=== PATIENT | male | born 1925 | race Asian ===

== ENCOUNTER 2016-09-22 13:14 | Inpatient (IN) | payer MEDICARE, BC ==
[~2016-09-22] VITALS: Ht 177.8 cm; Wt 70.0 kg
[2016-09-22] VITALS (8 sets, daily range): BP systolic 99–127; BP diastolic 49–62; PULSE 70–87; RESP 14–16; Ht 177.8 cm; Wt 70.0 kg
[2016-09-22] MEDS ORDERED: ASPIRIN 300 MG SUPP PR STA (13:17)
[2016-09-22] MEDS ORDERED: HEPARIN 1000 UNITS/ML 10 ML INJ IV STA (13:17)
[2016-09-22] MEDS ORDERED: ASPIRIN 81 MG TAB ONE (13:24)
[2016-09-22 13:28] LABS: BASOPHIL # 0.1 10^3/ul (0.0-0.1); BASOPHILS % 0.5 % (0.0-2.0); EOSINOPHILS # 0.3 10^3/ul (0.0-0.5); EOSINOPHILS % 2.9 % (0.0-7.0); HEMATOCRIT 46.1 % (42.0-52.0); HEMOGLOBIN 15.5 g/dl (14.0-18.0); LYMPHOCYTES # 4.2 10^3/ul (0.8-2.9); LYMPHOCYTES % 43.4 % (15.0-51.0); MEAN CORPUSCULAR HEMOGLOBIN 33.3 pg (29.0-33.0); MEAN CORPUSCULAR HGB CONC 33.7 g/dl (32.0-37.0); MEAN CORPUSCULAR VOLUME 98.9 fl (82.0-101.0); MEAN PLATELET VOLUME 9.8 fl (7.4-10.4); MONOCYTE # 0.8 10^3/ul (0.3-0.9); MONOCYTES % 8.5 % (0.0-11.0); NEUTROPHIL # 4.3 10^3/ul (1.6-7.5); NEUTROPHILS % 44.7 % (39.0-77.0); PLATELET COUNT 232 10^3/UL (140-440); RED BLOOD COUNT 4.65 10^6/ul (4.70-6.10); UNCORRECTED WBC 9.6 10^3/ul (4.8-10.8); WHITE BLOOD COUNT 9.6 10^3/ul (4.8-10.8)
[2016-09-22] MEDS ORDERED: ASPIRIN 81 MG TAB PO ONE (13:30)
--- NOTE | 2016-09-22 13:31 | ERA ---
ER Documentation Chief Complaint Date/Time DATE: 09/22/16 TIME: 13:24 Chief Complaint bibr found in kitchen by passed out, ekg showed stemi, pt a/o 4 HPI This 81-year-old male presents to the emergency room after he had a syncopal episode and was found by his passed out of the kitchen. According to family he had stents placed about a week ago at [facility]. His EKG showed inferior wall STEMI in the field. Patient was altered. Family is not present yet and no further history is obtainable. ROS Unobtainable. Patient not answering questions. Altered Allergies Allergies: Coded Allergies: No Known Allergy (Verified Allergy, Unknown, 12/27/06) PMhx/Soc History of Surgery: Yes (3 stents) Anesthesia Reaction: No Hx Neurological Disorder: No Hx Respiratory Disorders: No Hx Cardiac Disorders: Yes (3 stents) Hx Alcohol Use: No Hx Substance Use: No Hx Tobacco Use: No Smoking Status: Former smoker Physical Exam Vitals Vital Signs Date Time Temp Pulse Resp B/P Pulse Ox O2 Delivery O2 Flow Rate FiO2 09/22/16 13:19 97.8 91 18 164/91 99 09/22/16 13:19 94 18 164/91 100 Nasal Cannula 6.0 Physical Exam Const: [] No distress Head: Atraumatic Eyes: Normal Conjunctiva, PERRLA, EOMI ENT: Normal External Ears, Nose and Mouth. Neck: Full range of motion..~ No meningismus. Resp: Clear to auscultation bilaterally Cardio: Regular rate and rhythm, no murmurs Abd: Soft, non tender, non distended. Normal bowel sounds Skin: No petechiae or rashes Back: No midline or flank tenderness Ext: No cyanosis, or edema, midsternotomy scar along chest wall. Neur: Awake and alert, looking around room, not responding to questions, moves all 4 extremities, full neuro neurological exam is not possible Result Diagram: 09/22/16 1320 09/22/16 1320 Results 24 hrs Laboratory Tests Test 09/22/16 13:20 Activated Partial Thromboplast Time 29.8Sec Anion Gap 29 Basophils # 0.110^3/ul Basophils % 0.5% Blood Urea Nitrogen 25mg/dl Calcium Level 9.0mg/dl Carbon Dioxide Level 15mmol/L Chloride Level 97mmol/L Creatinine 1.21mg/dl Eosinophils # 0.310^3/ul Eosinophils % 2.9% Glucose Level 167mg/dl Hematocrit 46.1% Hemoglobin 15.5g/dl INR International Normalized Ratio 1.02 Lymphocytes # 4.210^3/ul Lymphocytes % 43.4% Mean Corpuscular Hemoglobin 33.3pg Mean Corpuscular Hemoglobin Concent 33.7g/dl Mean Corpuscular Volume 98.9fl Mean Platelet Volume 9.8fl Monocytes # 0.810^3/ul Monocytes % 8.5% Neutrophils # 4.310^3/ul Neutrophils % 44.7% Nucleated Red Blood Cells # 0.010^3/ul Nucleated Red Blood Cells % 0.0/100WBC Platelet Count 74125^3/UL Potassium Level 3.9mmol/L Prothrombin Time 13.4Sec Prothrombin Time Ratio 1.0 Red Blood Count 4.6510^6/ul Red Cell Distribution Width 14.0% Sodium Level 137mmol/L Troponin I 0.019ng/ml White Blood Count 9.610^3/ul Current Medications Medications (Trade) Dose Ordered Sig/Alvaro Route PRN Reason Start Time Stop Time Status Last Admin Dose Admin Aspirin (Aspirin) 300 mg ONCE STAT CA 09/22/16 13:17 09/22/16 13:19 DC Heparin Sodium (Porcine) (Heparin (1000 Units/ml)) 5,000 unit ONCE STAT IV 09/22/16 13:17 09/22/16 13:19 DC 09/22/16 13:28 Aspirin (Aspirin) 324 mg ONCE ONCE PO 09/22/16 13:30 09/22/16 13:31 DC 09/22/16 13:28 Aspirin (Aspirin) 81 mg STK-MED ONCE .ROUTE 09/22/16 13:24 09/22/16 13:25 DC Lidocaine (Xylocaine 1% (Mdv) 20 ml) 20 ml STK-MED ONCE .ROUTE 09/22/16 13:54 09/22/16 13:55 DC Iodixanol (Visipaque Locm) 50 ml STK-MED ONCE .ROUTE 09/22/16 13:54 09/22/16 13:55 DC Iodixanol (Visipaque Locm) 100 ml STK-MED ONCE .ROUTE 09/22/16 13:54 09/22/16 13:55 DC Verapamil HCl (Verapamil) 5 mg STK-MED ONCE .ROUTE 09/22/16 13:54 09/22/16 13:55 DC Nitroglycerin 1000 mcg 1,000 mcg STK-MED ONCE .ROUTE 09/22/16 13:54 09/22/16 13:55 DC Sodium Chloride 500 ml @ ud STK-MED ONCE .ROUTE 09/22/16 14:01 09/22/16 14:02 DC Bivalirudin 50 ml @ ud STK-MED ONCE IVPB 09/22/16 14:01 09/22/16 14:02 DC Dopamine HCl/ Dextrose 250 ml @ ud STK-MED ONCE .ROUTE 09/22/16 14:11 09/22/16 14:12 DC Norepinephrine (Levophed) 0 ml @ ud STK-MED ONCE .ROUTE 09/22/16 14:17 09/22/16 14:18 DC Ticagrelor (Brilinta) 90 mg STK-MED ONCE .ROUTE 09/22/16 14:29 09/22/16 14:30 DC Miscellaneous Information (* Miscellaneous Pharmacy Order) Hold all Metformin ... ONCE ONCE XX 09/22/16 15:30 09/22/16 15:32 DC Aspirin (Halfprin) 81 mg DAILY PO 09/23/16 09:00 Ticagrelor (Brilinta) 90 mg BID PO 09/22/16 21:00 Atorvastatin Calcium (Lipitor) 40 mg DAILY@21 PO 09/22/16 21:00 Acetaminophen (Tylenol Tab) 650 mg Q4H PRN PO NON-CARDIAC PAIN LEVEL 1-3 09/22/16 15:30 Oxycodone/ Acetaminophen (Percocet (5/ 325)) 1 tab Q4H PRN PO REPORTED NON-CARDIAC PAIN 4-7 09/22/16 15:30 Oxycodone/ Acetaminophen (Percocet (5/ 325)) 2 tab Q4H PRN PO REPORTED NON-CARDIAC PAIN 4-7 09/22/16 15:30 Morphine Sulfate (morphine) 1 mg Q1H PRN IV PAIN NOT RELIEVED BY OTHERS 09/22/16 15:30 Docusate Sodium (Colace) 100 mg BID PO 09/22/16 21:00 Famotidine (Pepcid) 20 mg Q12 PO 09/22/16 21:00 Carvedilol (Coreg) 3.125 mg BID PO 09/22/16 21:00 Lisinopril 2.5 mg 2.5 mg DAILY PO 09/23/16 09:00 Sodium Chloride (NS) 1,000 ml @ 75 mls/hr [id number] IV 09/22/16 15:24 09/23/16 04:43 Procedures/MDM Because of the patient's significant history of recent stent placement, risk factors, field EKG showing STEMI with reciprocal depressions code STEMI was activated at 1307. Spoke with repair welder, Dr. Veliz, at 1310. Patient arrived at 1314. Patient was given 5000 of heparin per cardiology recommendation. Also gave him 3 and 24 mg p.o. aspirin. His mental status improved several minutes after he got here he was answering questions but did not remember what might of happened, did not remember how recently he had been at [facility] for his stents he did not remember any medications that he takes although he knows there are many. .was present in the emergency room at 1328 and speaking to patient. He took the patient probably to the [facility]. Patient's laboratories returned and troponin was 0.019. I have ordered a CAT scan because of the syncopal episode and results are still pending. I am awaiting those results. I spoke with Dr. Bird Mahmood will be admitting the patient to the intensive care unit. Continue discussed the case with interventional cardiology t. Apparently the patient had a 99% RCA lesion EKG interpretation, proposal editor EKG from the field: Inferior wall STEMI with ST elevations in leads III and aVF as well as lead to with reciprocal depressions in the anterolateral leads., Right bundle branch block, right axis deviation. Suspicious for STEMI EKG interpretation #2, and hospital. Patient still has ST elevations in leads III and aVF. Normal sinus rhythm, rate of 99, bifascicular block, right axis deviation, suspicious for STEMI brick stacker interpretation: Normal sinus rhythm alternating with mild sinus tachycardia without other arrhythmias Chest x-ray interpretation: I see mild cardiomegaly, I see no other acute process. No pulmonary edema, no infiltrates, no pneumothorax, no acute fractures. There is poor inspiration present Critical care time 33 minutes: This includes management ST elevation myocardial infarction in patient with a syncopal episode, prehospital EKG, prehospital discussion with repair welder, ministration of heparin, multiple visits patient's bedside to reassess status, discussion with repair welder, discussion with admitting doctor after patient had a going to hospital laboratory technician, interpretation of laboratories, continue discussion with repair welder after the patient had been in hospital laboratory technician, this is not including billable procedures performed. Departure Diagnosis: Primary Impression: ST elevation myocardial infarction (STEMI) Additional Impressions: Syncope Altered mental status Right coronary artery occlusion Condition: Critical ANIYAH RAMÍREZ DO Sep 22, 2016 13:31
[2016-09-22 13:37] LABS: POTASSIUM 3.9 mmol/L (3.5-5.1)
[2016-09-22 13:38] LABS: INR 1.02; PROTIME 13.4 Sec (12.2-14.2)
[2016-09-22 13:39] LABS: PARTIAL THROMBOPLASTIN TIME 29.8 Sec (25.0-35.0)
[2016-09-22 13:40] LABS: CREATININE 1.21 mg/dl (0.61-1.24)
--- NOTE | 2016-09-22 13:40 | RADRPT ---
PROCEDURE: XR Chest AP portable CLINICAL INDICATION: Stemi TECHNIQUE: An AP portable radiograph of the chest was submitted. COMPARISON: 04/29/2007 FINDINGS: Support Hardware: None Cardiovascular: Metallic sternal wiring is again evident. The heart appears mildly enlarged and the aorta appears atherosclerotic with a pulmonary vasculature upper normal. Lung Pendleton: Diffuse interstitial prominence is seen to the lung pendleton exaggerated by suboptimal in spiration and underpenetrated technique. No alveolar infiltrate is evident. Pleural Spaces: No pneumothorax or pleural effusion is identified. Osseous Structures: The osseous elements appear rarefied. Soft Tissues: The soft tissues appear unremarkable. IMPRESSION: 1. Previous midline sternotomy. 2. Persistent mild cardiomegaly with atherosclerotic changes to the aorta and with the pulmonary va sculature upper normal. 3. Interstitial prominence seen diffusely through the lung pendleton exaggerated by poor inspiratory e ffort and under penetrated technique with no alveolar infiltrate or effusion identified. Physician Jin Date Time Electronically viewed and signed by Physician Jin on 09/22/2016 13:40 RH/
[2016-09-22 13:53] LABS: TROPONIN-I 0.019 ng/ml (0.00-0.12)
[2016-09-22] MEDS ORDERED: IODIXANOL LOCM 50 ML BTL ONE (13:54)
[2016-09-22] MEDS ORDERED: NITROGLYCERIN (IC) 100 MCG/ML INJ ONE (13:54)
[2016-09-22] MEDS ORDERED: IODIXANOL LOCM 100 ML BTL ONE (13:54)
[2016-09-22] MEDS ORDERED: VERAPAMIL 5 MG INJ ONE (13:54)
[2016-09-22] MEDS ORDERED: LIDOCAINE 1% (MDV) 20 ML INJ ONE (13:54)
[2016-09-22] MEDS ORDERED: SOD CHLORIDE 0.9% 500 ML ONE (14:01)
[2016-09-22] MEDS ORDERED: BIVALIRUDIN 250MG /NS 50 ML 50 ML IVPB ONE (14:01)
[2016-09-22 14:02] LABS: CONDITION 1
[2016-09-22] MEDS ORDERED: DOPamine-D5W 1.6 MG/ML 250 ML ONE (14:11)
[2016-09-22] MEDS ORDERED: NORepinephrine 8MG/250 ML (PMX 0 ML ONE (14:17)
[2016-09-22] MEDS ORDERED: TICAGRELOR 90 MG TABLET ONE (14:29)
[2016-09-22] MEDS ORDERED: OXYCODONE/ACETAMINOPHEN (5/325) TAB PO PRN ×2 (15:30)
[2016-09-22] MEDS ORDERED: ACETAMINOPHEN 325 MG TAB PO PRN (15:30)
[2016-09-22] MEDS ORDERED: morphine 2 MG INJ IV PRN (15:30)
[2016-09-22] MEDS: SOD CHLORIDE 0.9% 1,000 ML IV SCH ×2 (16:00→23:34)
--- NOTE | 2016-09-22 18:20 | CONS ---
DATE OF ADMISSION: 09/22/2016 DATE OF CONSULTATION: 09/22/2016 TYPE OF CONSULTATION: Emergent interventional cardiology. REASON FOR CONSULTATION: ST elevation myocardial infarction. CHIEF COMPLAINT: Syncope. HISTORY OF PRESENT ILLNESS: Thank you for this referral. History was obtained from the patient who is an extremity poor historian, from discussion with multiple family members including his , hi s daughter and his granddaughter who stated that she is the family's secretary of police. I was able to obtain a brief history from [facility] where the patient was recently admitted for PCI as well. This is an 89-year-old pleasant gentleman with history of coronary artery disease, status post coron kathleen bypass graft, history of bypass, multiple PCIs, who had a recent angioplasty of his saphenous ve in graft to left circumflex artery done. At the best I could obtain from the old record that was gi iggy to me verbally, the patient on 09/06/2016 underwent elective cardiac catheterization. At that t aminata, he underwent PCI of the left circumflex artery graft with 3 stents. At that time, he appeared to have a LUJAN to LAD patent and the right coronary artery has reportedly 50% stenosis. He reported ly fell in the kitchen and was passed out. EKG showed inferior ST elevation myocardial infarction. The patient did not have any chest pain; however, but because of his EKG abnormality was brought in to emergency cardiac catheterization. He was found to have 95% right coronary artery stenosis. Th is was successfully stented. There was evidence of clot there as well. Currently, the patient is i n the ICU with no chest pain or pressure. PAST MEDICAL HISTORY: History of coronary artery disease, status post multivessel bypass surgery ab out 11 years ago, history of hypertension, dyslipidemia, history of PCI of his saphenous vein graft to his circumflex artery on 09/05/[address] Joseph at [facility], history of chronic kidney dise ase. SURGICAL HISTORY: As above-mentioned, apparently has had a hematoma on his right groin after his pr evious PCI per patient's family's report. SOCIAL HISTORY: The patient is a former smoker. Does not smoke or drink anymore. FAMILY HISTORY: No reported early coronary artery disease. ALLERGIES: NO KNOWN DRUG ALLERGIES MEDICATIONS: As per medical reconciliation, which was personally reviewed, according to the family, include 1. Aspirin. 2. Plavix. 3. Lisinopril. 4. Carvedilol. 5. Lipitor. REVIEW OF SYSTEMS: As above-mentioned, patient had worsening memory apparently recently. PHYSICAL EXAMINATION: VITAL SIGNS: Temperature 98.4, heart rate of 81, blood pressure of 108/59, respiratory rate of 14, saturating 99%. HEENT: Normocephalic, atraumatic. Pupils are equal. CARDIOVASCULAR: Regular rate and rhythm, systolic murmur. PULMONARY: Anteriorly with no wheezes heard. No rhonchi. GASTROINTESTINAL: Soft, nontender. EXTREMITIES: With trivial lower extremity edema. VASCULAR: Right femoral with hematoma as noted prior to the procedure as well. Small ecchymosis no nithya. NEUROLOGIC: Awake and alert, oriented to person. He keeps forgetting where he is, but he knows in the hospital though. PSYCHIATRIC: Appears to be calm and very pleasant. LABORATORY DATA: WBC of 9.26, hemoglobin 15.5, platelets of 232. Sodium 137, potassium 3.9, BUN of 25, creatinine 1.21, glucose 167. Troponin 0.019. Review of the old chart showed as of 04/30, his LDL was 164. Total cholesterol 253, HDL 60. EKGs were reviewed. Old EKGs were done were reviewed from 09/05/2016 showed normal sinus rhythm wit h right bundle branch block. EKG from today shows sinus tachycardia, right bundle branch block with marked ST elevation in inferi leander, reciprocal changes in the lateral lead, consistent with an acute inferior ST elevation myocard ial infarction. IMAGING: The chest x-ray shows a previous midline sternotomy, mild cardiomegaly, atherosclerosis ch anges of the aorta, pulmonary vascular congestion appear normal. Interstitial prominence diffusely throughout the lungs, history of poor respiratory effort. ASSESSMENT AND PLAN: 1. Acute inferior ST elevation myocardial infarction, status post successful percutaneous coronary intervention of right coronary artery. 2. History of extensive coronary artery disease, history of coronary bypass graft. 3. History of previous percutaneous coronary intervention. 4. Hypertension. 5. Abnormal EKG secondary to above. 6. Syncope, most likely related to above. 7. Severe dyslipidemia. 8. Hypertension. RECOMMENDATIONS: 1. The patient will be placed on aspirin, lisinopril, Brilinta, Lipitor, carvedilol. 2. He will be observed closely in ICU overnight. 3. Echocardiogram will be checked. We will monitor him very closely. Thank you for this referral. Dictated By: JOHANNA GIBSON MD AV/NTS Conf#: [id number] DID#: [id number] CC: ANIYAH RAMÍREZ DO; ALLAN HAYNES MD;*EndCC*
--- NOTE | 2016-09-22 18:40 | SP ---
DATE OF PROCEDURE: 09/22/2016 PROCEDURE: 1. Emergent left heart catheterization, selective right and left coronary angiography, and saphenou s vein angiography. 2. Successful thrombectomy/PTCA/stenting of the distal right coronary artery from 99% stenosis with evidence of intraluminal thrombus, no significant residual stenosis, using a 2.5 x 24 mm Promus ___ __ stent. SURGEON: Johanna Veliz MD INDICATIONS: This is an 89-year-old gentleman who presented with inferior ST elevation myocardial i nfarction. With the brief note that I could obtain from [facility] Jacob, it appeared at that time he had an angiography done, which showed LUJAN to LAD was patent. Circumflex artery was severely, diffusel y diseased, and the graft to the circumflex artery was stented using 3 stents. Right coronary arter y apparently had 50% stenosis only reportedly. FINDINGS: 1. Left main coronary is a large vessel and normal. 2. Left anterior descending ostially 100% occluded. As previously reported, LUJAN to LAD was patent , so it was not looked at. 3. Left circumflex artery had multiple areas of subtotal lesions. Saphenous vein graft to obtuse m arginal appeared to be widely patent. OM marginal itself currently has severe diffuse disease. 4. Right coronary artery is a large dominant vessel. Proximally, it has about 50% stenosis. Dista lly, it has 99% stenosis with in-stent luminal thrombus. After successful PTCA stent and thrombecto my of this lesion, there was no significant stenosis left. Posterior descending artery has a TAPE DECK INSTALLER. The wire was able to cross; however, . Posterolateral artery has one of the branches also ano ther TAPE DECK INSTALLER. 5. LV systolic pressure is 104. 8. DESCRIPTION OF PROCEDURE: Written informed consent was discussed with the patient and in detai l. This included infection, vascular complication, bleeding complication, FL, stroke, arrhythmia, d eath, renal failure, etc., discussed with the patient and the family. Patient memory impairme nt. Discussed it with the , and consent was obtained. The patient was admitted to the geoscience laboratory technician and sterile fashion. Right groin was anesthetized wi th 1% lidocaine was injected. A 6-Nepali sheath in the femoral artery. A JL4 catheter was advanced and engaged in the left main coronary artery. Angiogram was obtained. JR4 guiding catheter was pa ssed into the saphenous vein graft. Angiogram was obtained. It appeared that the stents were paten t. right coronary artery, and angiogram was obtained. We decided to proceed with PCI of the right coronary artery. BMW wire used across the lesion in the posterolateral artery. A 2.5 x 12 ba lloon was used to predilate the vessel. Angiogram was obtained. Pronto was used, and a thrombectom y was obtained. Intracoronary was given, and angiogram was obtained. Patient transiently bec ankit hypertensive after this. was started. Atropine was given. Then, a river pilot wire was used a nd placed with very great difficulty, advanced into the posterior descending artery. It was a very small vessel. Tried to advance different balloons, including a 1.25 balloon, which could not cross across it. total occlusion of the vessel. Then, the 2.5 balloon was used again and predilate d the distal RCA. Finally, a 2.5 x 24 mm Promus balloon was placed across the distal RCA and deploy ed at 16 atmospheres. Angiogram was obtained. Finally, a 3 x 8 mm balloon was used and place d across the lesion within the stent and postdilated up to 18 atmospheres. Final angiogram was obta ined with DIA 0 flow, no evidence of dissection, no significant residual stenosis. Catheter and Gl idewire were removed. Pigtail was advanced and engaged in the left main, hemodynamics recorded. __ ___ aortic pressure was measured. Right femoral angiogram was performed. Perclose was successfully deployed. Patient tolerated the procedure without complication. The patient was transferred to recovery room in stable condition. IMMEDIATE COMPLICATIONS: None. TOTAL CONTRAST USED: 110 mL of Visipaque. CONCLUSION: Successful PTCA stent thrombectomy of the right coronary artery from 99% stenosis with no significant residual stenosis. Dictated By: JOHANNA VELIZ MD AV/BIN Conf#: [id number] DID#: [id number] CC: ZULMA KOHLER MD;*EndCC*
[2016-09-22 20:33] LABS: CK-MB 56.8 ng/ml (0.0-2.4)
[2016-09-22] MEDS: ATORVASTATIN 40 MG TAB PO SCH (20:36)
[2016-09-22] MEDS: DOCUSATE SODIUM 100 MG CAP PO SCH (20:36)
[2016-09-22 20:37] LABS: TROPONIN-I 13.8 ng/ml (0.00-0.12)
[2016-09-22] MEDS: FAMOTIDINE 20 MG TAB PO SCH (20:37)
[2016-09-22] MEDS: TICAGRELOR 90 MG TABLET PO SCH (20:39)
[2016-09-22] MEDS ORDERED: ATORVASTATIN 40 MG TAB PO SCH (21:00)
[2016-09-23] VITALS (21 sets, daily range): BP systolic 98–156; BP diastolic 48–72; PULSE 56–69; RESP 16–20
[2016-09-23 02:11] LABS: CK-MB 70.1 ng/ml (0.0-2.4); TROPONIN-I 19.7 ng/ml (0.00-0.12)
[2016-09-23 05:42] LABS: ALBUMIN 3.4 g/dl (3.3-4.9)
[2016-09-23 05:43] LABS: POTASSIUM 4.4 mmol/L (3.5-5.1)
[2016-09-23 05:45] LABS: ALBUMIN/GLOBULIN RATIO 1.21; BILIRUBIN,INDIRECT 1.2 mg/dl (0-1.1); BILIRUBIN,TOTAL 1.2 mg/dl (0.2-1.3); CREATININE 0.88 mg/dl (0.61-1.24); TOTAL PROTEIN 6.2 g/dl (6.1-8.1)
[2016-09-23 05:46] LABS: CALCIUM 8.4 mg/dl (8.4-10.2)
[2016-09-23 06:04] LABS: TROPONIN-I 18.3 ng/ml (0.00-0.12)
[2016-09-23 06:10] LABS: THYROID STIMULATING HORMONE 2.34 MIU/L (0.465-4.680)
[2016-09-23 06:40] LABS: BASOPHILS % 0.2 % (0.0-2.0); EOSINOPHILS % 0.1 % (0.0-7.0); HEMATOCRIT 37.8 % (42.0-52.0); HEMOGLOBIN 12.9 g/dl (14.0-18.0); LYMPHOCYTES # 0.8 10^3/ul (0.8-2.9); LYMPHOCYTES % 9.3 % (15.0-51.0); MEAN CORPUSCULAR HEMOGLOBIN 33.6 pg (29.0-33.0); MEAN CORPUSCULAR HGB CONC 34.2 g/dl (32.0-37.0); MEAN CORPUSCULAR VOLUME 98.2 fl (82.0-101.0); MEAN PLATELET VOLUME 9.3 fl (7.4-10.4); MONOCYTE # 0.8 10^3/ul (0.3-0.9); MONOCYTES % 9.8 % (0.0-11.0); NEUTROPHIL # 6.9 10^3/ul (1.6-7.5); NEUTROPHILS % 80.6 % (39.0-77.0); PLATELET COUNT 168 10^3/UL (140-440); RED BLOOD COUNT 3.85 10^6/ul (4.70-6.10); RED CELL DISTRIBUTION WIDTH 14.2 % (11.5-14.5); UNCORRECTED WBC 8.6 10^3/ul (4.8-10.8); WHITE BLOOD COUNT 8.6 10^3/ul (4.8-10.8)
[2016-09-23 06:44] LABS: CONDITION 1
--- NOTE | 2016-09-23 07:08 | PN ---
DATE: 09/22/2016 SUBJECTIVE: Emergent interventional cardiology consultation. Full consult will follow. Previously 89-year-old gentleman with history of coronary artery disease, status post coronary bypass graft, s tatus post PCI of the saphenous vein graft to left circumflex artery with 3 drug-eluting stents on 0 09/04 at [facility] by , who presented with syncopal episode. Prior EKG had shown inferior ST elevation myocardial infarction. RECOMMENDATIONS: Patient is being brought in for emergent cardiac catheterization and possible inte rvention. Family is not available. It was felt that the patient would need an emergency cardiac ca theterization. I discussed with the physician in the emergency room. This plan has been discussed with the patient; however, patient with poor memory. Dictated By: JOHANNA CARDENAS/BIN Conf#: [id number] DID#: [id number]
[2016-09-23] MEDS ORDERED: LISINOPRIL 5 MG TAB PO SCH (09:00)
[2016-09-23] MEDS: TICAGRELOR 90 MG TABLET PO SCH ×2 (09:23→21:48)
[2016-09-23] MEDS: DOCUSATE SODIUM 100 MG CAP PO SCH ×2 (09:24→21:00)
[2016-09-23] MEDS: ASPIRIN (EC) 81 MG TAB PO SCH (09:25)
[2016-09-23] MEDS: FAMOTIDINE 20 MG TAB PO SCH ×2 (09:26→21:00)
--- NOTE | 2016-09-23 09:31 | HP ---
DATE OF ADMISSION: 09/22/2016 TIME SEEN: 2300. CHIEF COMPLAINT: Loss of consciousness and ST elevation myocardial infarction. The patient is an 89 -year-old male with a history of coronary artery disease status post stent, history of coronary myla ry bypass graft, who presented to the emergency department after he had a loss of consciousness whil e he was at home. EKG shows a STEMI. Upon coming to the ER, EKG again showed STEMI and the patient was taken to the hoisting laborer emergently and now he is status post successful thrombectomy/PTCA/stentin g of the distal right coronary artery. Currently, he is in the ICU in stable condition. REVIEW OF SYSTEMS: A 12 point review of systems negative except as mentioned in HPI. PAST MEDICAL HISTORY: As per HPI. PAST SURGICAL HISTORY: As per HPI. SOCIAL HISTORY: He is an ex-smoker, but he quit over 50 years ago. ALLERGIES: NO KNOWN DRUG ALLERGIES. HOME MEDICATIONS: There are none listed, family is going to bring. PHYSICAL EXAMINATION: VITAL SIGNS: Blood pressure 126/60, heart rate 70, respiratory rate 16, temperature 98.9, oxygen sa turation 97% on 3 liters. GENERAL: Elderly male lying in bed in no acute distress. HEENT: No obvious head deformity. Pupils are reactive to light. Extraocular muscles intact. CARDIOVASCULAR: Regular rate and rhythm. No extra heart sounds. LUNGS: Clear. ABDOMEN: Soft, nontender, nondistended. No grimaces noted on palpation. EXTREMITIES: No edema. NEUROLOGIC: No focal deficits. LABORATORY: Bicarbonate 15, anion gap 29, BUN 25. Otherwise initial CBC and BMP are within normal l imits. His first troponin was 0.019, second troponin was 13.8, third one 19.7. IMAGING: Mild cardiomegaly with atherosclerotic change of the aorta and the pulmonary vascular is in the upper limits of normal. Also noted was interstitial prominence diffusely through the lung fiel ds with no infiltrates or effusions. IMPRESSION: 1. ST elevation myocardial infarction, status post thrombectomy/stenting of the distal RCA. 2. History of coronary artery disease status post stent x3 in the past. 3. History of coronary artery bypass gap. 4. Anion gap metabolic acidosis. PLAN: Continue ICU monitoring overnight. Continue his current cardiac medications. Will obtain a 2D echo. Anticipate his metabolic acidosis to improve by tomorrow. We will monitor electrolytes cl osely and correct as needed. He is to be followed by Dr. Veliz from cardiology. Further workup. We will monitor clinical course. Total critical time spent is about 35 minutes. Dictated By: ZULMA BERRIOS/BIN Conf#: [id number] DID#: [id number]
--- NOTE | 2016-09-23 10:32 | PN ---
Date/Time of Note Date/Time of Note DATE: 09/23/16 TIME: 10:23 Assessment/Plan VTE Prophylaxis VTE Prophylaxis Intervention: other (Patient is on aspirin and Brilinta) Lines/Catheters IV [facility] [place] [facility] Urinary Cath still in place: No Assessment/Plan Chief Complaint/Hosp Course IMPRESSION: 1. ST elevation myocardial infarction, status post thrombectomy/stenting of the distal RCA. Continue aggressive medical management, aspirin, Brilinta, statin and beta blockers 2. History of coronary artery disease status post stent x3 and coronary artery bypass in the past. As above 3. Dyslipidemia Continue statin 4. Anion gap metabolic acidosis. Resolved 5. 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 HEENT: Atraumatic, normocephalic. The pupils are equal and round . Neck: Supple with full range of motion. Chest: Normal expansion of the thorax during inspiration Lungs: Clear to auscultation bilaterally Heart: Normal S1-S2, Regular rhythm and rate. Abdomen: Soft , nontender, nondistended , bowel sounds are present. Extremities: Normal to inspection, no edema no cyanosis, right groin left heart cath site is dry and clean no evidence of hematoma Neurologic: Normal mental status,The patient is awake, alert and oriented . Results Result Diagram: 09/23/16 0400 09/23/16 0400 Results 24 hrs Laboratory Tests Test 09/22/16 13:20 09/22/16 19:35 09/23/16 01:19 09/23/16 04:00 Activated Partial Thromboplast Time 29.8 Anion Gap 29 H 15 # Basophils # 0.1 0.0 Basophils % 0.5 0.2 Blood Urea Nitrogen 25 H 23 H Calcium Level 9.0 8.4 Carbon Dioxide Level 15 L 21 Chloride Level 97 102 Creatinine 1.21 0.88 Eosinophils # 0.3 0.0 Eosinophils % 2.9 0.1 Glucose Level 167 72 # Hematocrit 46.1 37.8 L Hemoglobin 15.5 12.9 L INR International Normalized Ratio 1.02 Lymphocytes # 4.2 H 0.8 Lymphocytes % 43.4 9.3 L Mean Corpuscular Hemoglobin 33.3 H 33.6 H Mean Corpuscular Hemoglobin Concent 33.7 34.2 Mean Corpuscular Volume 98.9 98.2 Mean Platelet Volume 9.8 9.3 Monocytes # 0.8 0.8 Monocytes % 8.5 9.8 Neutrophils # 4.3 6.9 Neutrophils % 44.7 80.6 H Nucleated Red Blood Cells # 0.0 0.0 Nucleated Red Blood Cells % 0.0 0.0 Platelet Count 232 168 # Potassium Level 3.9 4.4 Prothrombin Time 13.4 Prothrombin Time Ratio 1.0 Red Blood Count 4.65 L 3.85 L Red Cell Distribution Width 14.0 14.2 Sodium Level 137 134 L Troponin I 0.019 13.800 *H 19.700 *H 18.300 *H White Blood Count 9.6 8.6 Creatine Kinase 531 H 657 H 700 H Creatine Kinase Index 10.7 10.7 9.0 Creatinine Kinase MB (Mass) 56.80 H 70.10 H 63.00 H Alanine Aminotransferase (ALT/SGPT) 55 Albumin 3.4 Albumin/Globulin Ratio 1.21 Alkaline Phosphatase 50 Aspartate Amino Transf (AST/SGOT) 147 H B-Type Natriuretic Peptide 4440 H Cholesterol Level 125 Cholesterol/HDL Ratio 3.0 Direct Bilirubin 0.00 Free Thyroxine 0.89 Globulin 2.80 HDL Cholesterol 41 Indirect Bilirubin 1.2 H LDL Cholesterol, Calculated 72 Magnesium Level 2.0 Thyroid Stimulating Hormone (TSH) 2.340 Total Bilirubin 1.2 Total Protein 6.2 Triglycerides Level 60 Medications Medications Current Medications Aspirin (Halfprin) 81 mg DAILY PO Last administered on 09/23/16t 09:25; Admin Dose 81 MG; Start 09/23/16 at 09:00 Ticagrelor (Brilinta) 90 mg BID PO Last administered on 09/23/16 09:23; Admin Dose 90 MG; Start 09/22/16 at 21:00 Acetaminophen (Tylenol Tab) 650 mg Q4H PRN PO NON-CARDIAC PAIN LEVEL 1-3; Start 09/22/16 at 15:30 Oxycodone/ Acetaminophen (Percocet (5/ 325)) 1 tab Q4H PRN PO REPORTED NON- CARDIAC PAIN 4-7; Start 09/22/16 at 15:30 Oxycodone/ Acetaminophen (Percocet (5/ 325)) 2 tab Q4H PRN PO REPORTED NON- CARDIAC PAIN 4-7; Start 09/22/16 at 15:30 Morphine Sulfate (morphine) 1 mg Q1H PRN IV PAIN NOT RELIEVED BY OTHERS; Start 09/22/16 at 15:30 Docusate Sodium (Colace) 100 mg BID PO Last administered on 09/23/16 09:24; Admin Dose 100 MG; Start 09/22/16 at 21:00 Famotidine (Pepcid) 20 mg Q12 PO Last administered on 09/23/16 09:26; Admin Dose 20 MG; Start 09/22/16 at 21:00 Carvedilol (Coreg) 3.125 mg BID PO Last administered on 09/23/16 09:25; Admin Dose 3.125 MG; Start 09/22/16 at 21:00 Lisinopril (Zestril) 2.5 mg DAILY PO Last administered on 09/23/16 09:25; Admin Dose 2.5 MG; Start 09/23/16 at 09:00 Atorvastatin Calcium (Lipitor) 80 mg DAILY@21 PO Last administered on 20:36; Admin Dose 80 MG; Start 09/22/16 at 21:00 MANISHA MURPHY MD Sep 23, 2016 10:31
--- NOTE | 2016-09-23 15:09 | RADRPT ---
Echocardiogram Report Patient Name: WOODROW RANDALL Gender: Male Date: 29-Nov-1926 Study Date: 23-Sep-2016 [employer] Operator: [facility] Location: 104 Ref. Physician: JOHANNA VELIZ Quality: Technically Difficult Study Procedures: Transthoracic echocardiogram with complete 2D, M-Mode, and doppler examination. Indications: STEMI. 2D/M Mode Doppler Measurement Value Normal Ranges Measurement Value Normal Ranges LVIDd 2D 4.2 3.5 - 5.6 cm AV Peak Edenilson 1.2 m/sec LVIDs 2D 3.6 2.1 - 4.1 cm AV Peak PG 6.1 mmHg LVPWd 2D 0.8 0.6 - 1.1 cm LVOT Peak Edenilson 0.8 m/sec IVSd 2D 1.7 0.6 - 1.1 cm MV E Peak Edenilson 0.5 m/sec AoR Diam 2D 2.7 2.0 - 3.7 cm MV A Peak Edenilson 1.0 m/sec LA Dimen 2D 3.3 2.3 - 4.0 cm MV E/A 0.5 IVC Diam 1.2 1.2 - 2.0 MV Decel Time 268 msec MV Decel Mcdonough 2 Lateral E` 0.1 m/sec Septal E` 0.1 m/sec E/E` 9.1 MV E/A 0.5 Findings Left Ventricle: Normal left ventricular cavity size. Sigmoid septum. Ejection fraction is visually estimated at 40 %. Tissue Doppler/Mitral Doppler indices are consistent with impaired relaxation (Stage I diastolic dysfunction). Multiple segmental wall motion abnormalities. Right Ventricle: Normal right ventricular size. Normal right ventricular systolic function. Left Atrium: The left atrium is normal in size. Right Atrium: The right atrium is normal in size. Mitral Valve: Mild mitral leaflet calcification. Mild mitral annular calcification. Trace mitral regurgitation. Aortic Valve: Aortic sclerosis without stenosis. Probable trileaflet aortic valve, although not all leaflets are visualized. Mild to moderate aortic valve regurgitation. Tricuspid Valve: Tricuspid valve not well visualized. There is trace tricuspid regurgitation. Pulmonic Valve: There is trace pulmonic regurgitation. Pericardium: Normal pericardium with no significant pericardial effusion. Aorta: Normal aortic root. IVC: Normal size and normal respiratory collapse consistent with normal right atrial pressure. Conclusions 1.Normal left ventricular cavity size. Sigmoid septum. Ejection fraction is visually estimated at 40 %. Tissue Doppler/Mitral Doppler indices are consistent with impaired relaxation (Stage I diastolic dysfunction). Multiple segmental wall motion abnormalities. 2.Aortic sclerosis without stenosis. Probable trileaflet aortic valve, although not all leaflets are visualized. Mild to moderate aortic valve regurgitation. 3.Mild mitral leaflet calcification. Mild mitral annular calcification. Trace mitral regurgitation. 4.Tricuspid valve not well visualized. There is trace tricuspid regurgitation. Electronically Signed By: Johanna Veliz 23-Sep-2016 15:08:47 -0800 Patient Name: WOODROW RANDALL Study Date: 23-Sep-2016 [id number]
--- NOTE | 2016-09-23 17:38 | PN ---
DATE: 09/23/2016 CARDIOLOGY FOLLOWUP SUBJECTIVE: Discussed with the patient's , discussion with the patient's daughter and granddaug hter. Multiple questions were answered in detail to the family who had many questions. The patient with no chest pain or pressure. No palpitation. Has mild groin pain. MEDICATIONS: Reviewed as per medical reconciliation, personally reviewed. PHYSICAL EXAMINATION: VITAL SIGNS: Temperature 98.4, heart rate of 60, blood pressure 130/61, respiration rate of 20, sat urating 96%. GENERAL: Elderly gentleman in no acute distress. HEENT: Normocephalic, atraumatic. Pupils equal and round. CARDIOVASCULAR: Regular rate and rhythm, systolic murmur. PULMONARY: No wheezes heard. GASTROINTESTINAL: Soft, nontender. VASCULAR: Right femoral hematoma, which was there prior to angiogram. It appeared actually improve d. Mild tenderness to palpation. No bruits. NEUROLOGIC: Awake and alert. PSYCHIATRIC: Calm, pleasant. LABORATORY: WBC of 8.6, hemoglobin 12.9, platelets of 168. Sodium 134, potassium 4.4, BUN of 23, c reatinine 0.88, glucose 72. Troponin has peaked at 19.7. Peak CK is 700 and MB fraction peaked at 70. ProBNP of ____. Cholesterol 125, LDL 72, HDL of 41. TSH 2.3. Echocardiogram was personally ariel medina, which shows ejection fraction of about 40%, but tedious study. ASSESSMENT AND PLAN: 1. Acute inferior ST elevation myocardial infarction, status post percutaneous coronary interventio n of the right coronary artery disease. 2. History of coronary artery disease, status post coronary artery bypass graft. 3. Syncope, most likely secondary to above. 4. Abnormal EKG. 5. Hypertension, currently stable. RECOMMENDATIONS: We will continue with the aspirin. Continue with the ROB inhibitor. His aspirin and Brilinta will be continued as well. Statin will be continued at the high dose. Will monitor on telemetry. Dictated By: JOHANNA GIBSON MD AV/NTS Conf#: [id number] DID#: [id number] CC: ZULMA KOHLER MD; MANISHA MURPHY MD;*[facility]*
--- NOTE | 2016-09-23 18:18 | RADRPT ---
PROCEDURE: CT Brain without contrast. CLINICAL INDICATION: Syncope, altered mental status TECHNIQUE: Routine CT scan of the brain was performed on a high resolution multi detector scanner without intravenous contrast. One or more of the following dose reduction techniques were used: Auto mated exposure control; Adjustment of the mA and/or kV according to patient size; Use of iterative r econstruction technique. CTDI = 44 mGy. DLP = 720 mGy-cm. COMPARISON: CT brain 04/29/2007 FINDINGS: Hemorrhage: No evidence of intracranial hemorrhage. Acute ischemic changes: No evidence of acute ischemic changes. Mass effect/Midline shift: None. Parenchymal volume: Moderate central parenchymal volume loss is evident. Ventricular system: Concordant with parenchymal volume. Chronic changes: 12 x 5 x 4 mm meningioma is present arising from the right side of the falx cerebri which demonstrates increased calcification in comparison to the previous examination dated 04/29/20 07 There are scattered areas of low attenuation change within the supratentorial white matter most c ompatible with moderate chronic microvascular ischemic changes. Idiopathic appearing calcifications of the bilateral basal ganglia are present. Atherosclerotic calcifications of the cavernous portions of both internal carotid arteries are prese nt. Extracranial soft tissues: Unremarkable. Calvarium: No fractures. Moderate degenerative changes of both mandibular condyles. Paranasal sinuses: Visualized paranasal sinuses are clear. Mastoid air cells: Visualized mastoid air cells are clear. IMPRESSION: No acute intracranial abnormalities. Moderate chronic-appearing microvascular ischemic changes of the supratentorial white matter. A small meningioma arising from the right side of the interhemispheric fissure appears slightly more calcified on the current examination. RPTAT: AADD .Chacorta Arnold MD, Date Time Electronically viewed and signed by .Chacorta Arnold MD, on 09/23/2016 18:17 .B/
[2016-09-23] MEDS: ATORVASTATIN 40 MG TAB PO SCH (21:46)
[2016-09-23] MEDS ORDERED: LORAZEPAM 2 MG INJ IV ONE (23:30)
[2016-09-23] MEDS ORDERED: HALOPERIDOL 5 MG INJ IM ONE (23:30)
[2016-09-24] VITALS (20 sets, daily range): BP systolic 135–190; BP diastolic 62–91; PULSE 70–90; RESP 18–21
[2016-09-24] MEDS ORDERED: HALOPERIDOL 5 MG INJ IM ONE (01:00)
[2016-09-24] MEDS ORDERED: DIPHENHYDRAMINE 50 MG INJ IV ONE (01:00)
[2016-09-24] MEDS ORDERED: hydrALAzine 20 MG INJ ONE (01:23)
[2016-09-24] MEDS ORDERED: hydrALAzine 20 MG INJ IV PRN (04:30)
[2016-09-24 07:24] LABS: BASOPHILS % 0.2 % (0.0-2.0); EOSINOPHILS # 0.1 10^3/ul (0.0-0.5); EOSINOPHILS % 0.5 % (0.0-7.0); HEMATOCRIT 41.1 % (42.0-52.0); HEMOGLOBIN 14.4 g/dl (14.0-18.0); LYMPHOCYTES # 1.2 10^3/ul (0.8-2.9); LYMPHOCYTES % 9.3 % (15.0-51.0); MEAN CORPUSCULAR HEMOGLOBIN 34.1 pg (29.0-33.0); MEAN CORPUSCULAR VOLUME 97.4 fl (82.0-101.0); MEAN PLATELET VOLUME 9.9 fl (7.4-10.4); MONOCYTES % 8.2 % (0.0-11.0); NEUTROPHIL # 10.2 10^3/ul (1.6-7.5); NEUTROPHILS % 81.8 % (39.0-77.0); PLATELET COUNT 183 10^3/UL (140-440); RED BLOOD COUNT 4.22 10^6/ul (4.70-6.10); RED CELL DISTRIBUTION WIDTH 13.9 % (11.5-14.5); UNCORRECTED WBC 12.5 10^3/ul (4.8-10.8); WHITE BLOOD COUNT 12.5 10^3/ul (4.8-10.8)
[2016-09-24 07:34] LABS: CREATININE 0.86 mg/dl (0.61-1.24)
[2016-09-24 07:35] LABS: CALCIUM 8.9 mg/dl (8.4-10.2)
[2016-09-24 07:39] LABS: CONDITION 1
[2016-09-24] MEDS: ASPIRIN (EC) 81 MG TAB PO SCH (09:13)
[2016-09-24] MEDS: DOCUSATE SODIUM 100 MG CAP PO SCH ×2 (09:13→20:15)
[2016-09-24] MEDS: LISINOPRIL 10 MG TAB PO SCH (09:14)
[2016-09-24] MEDS: FAMOTIDINE 20 MG TAB PO SCH ×2 (09:14→20:15)
[2016-09-24] MEDS: TICAGRELOR 90 MG TABLET PO SCH ×2 (09:21→20:19)
--- NOTE | 2016-09-24 11:40 | PDOCDIS ---
Discharge Instructions CONDITION Patient Condition: Good HOME CARE INSTRUCTIONS: Special Diet: Cardiac ACTIVITY: Activity Restrictions: Slowly Increase Activity Rest between Activity Avoid heavy lifting Do not Drive FOLLOW UP/APPOINTMENTS Appointments Follow up with PCP in one week Follow up with cardiology as out-pt MANISHA MURPHY MD Sep 24, 2016 11:40
[2016-09-24] MEDS ORDERED: Oxycodone/Acetamin (5/325) PO (11:45)
[2016-09-24] MEDS ORDERED: CARV6.2579 PO (11:45)
[2016-09-24] MEDS ORDERED: ASPI-664 PO (11:45)
[2016-09-24] MEDS ORDERED: TICA90TA PO (11:45)
[2016-09-24] MEDS ORDERED: ATOR40TA68 PO (11:45)
[2016-09-24] MEDS ORDERED: FAMO20TA18 PO (11:45)
[2016-09-24] MEDS ORDERED: LISI10TA2 PO (11:45)
[2016-09-24] MEDS ORDERED: CARV6.25 PO (12:03)
--- NOTE | 2016-09-24 12:03 | PN ---
DATE: 09/24/2016 CARDIOLOGY FOLLOWUP SUBJECTIVE: Discussed with the staff. The patient has been confused overnight apparently and agita nithya. Currently, doing better. No reported chest pain or pressure. No groin pain. MEDICATIONS: Reviewed. PHYSICAL EXAMINATION: VITAL SIGNS: Temperature 98.1, heart rate of 86, blood pressure 155/72, respiration rate of 21, sat urating 97%. HEENT: Normocephalic, atraumatic. Pupils are equal. CARDIOVASCULAR: Regular rate and rhythm, systolic murmur. PULMONARY: No wheezes heard. GASTROINTESTINAL: Soft, nontender. VASCULAR: slight old hematoma, otherwise no acute bleeding. No bruit. PSYCHIATRIC: Appears to be a calm. NEUROLOGIC: Awake and alert, oriented to person and place at least. LABORATORY: WBC of 12.1, hemoglobin 14.4, platelets of 183. Sodium 131, potassium 4, BUN of 19, cr eatinine 0.86, glucose of 91. ASSESSMENT AND PLAN: 1. Acute inferior ST elevation myocardial infarction. 2. Status post emergent percutaneous coronary intervention of right coronary artery. 3. History of coronary artery disease, status post coronary bypass graft. 4. History of PCI of the grafts before. 5. Syncope, abnormal EKG, right bundle branch block. 6. History of hypertension. 7. Dyslipidemia. RECOMMENDATIONS: I will increase the lisinopril and carvedilol to control the blood pressure better . Aspirin, a dose of 81 an Brilinta 90 b.i.d. will be continued. Statin as tolerated will be melodie nued as well. Discharge planning as per internal medicine. The patient was advised to follow up wi th his regular cardiology, Dr. Reardon within 1 week. Dictated By: JOHANNA GIBSON MD AV/BIN Conf#: [id number] DID#: [id number]
--- NOTE | 2016-09-24 12:16 | PN ---
Date/Time of Note Date/Time of Note DATE: 09/24/16 TIME: 12:14 Assessment/Plan VTE Prophylaxis VTE Prophylaxis Intervention: other Lines/Catheters IV Catheter Type (from [facility]): Peripheral IV Urinary Cath still in place: No Assessment/Plan Chief Complaint/Hosp Course IMPRESSION: 1. ST elevation myocardial infarction, status post thrombectomy/stenting of the distal RCA. Continue aggressive medical management, aspirin, Brilinta, statin and beta blockers 2. History of coronary artery disease status post stent x3 and coronary artery bypass in the past. As above 3. Dyslipidemia Continue statin 4. Anion gap metabolic acidosis. Resolved 5. Essential hypertension Well-controlled on medical management 6. Leukocytosis Likely reactive post left heart catheterization, start patient on prophylactic Rocephin We will continue monitor patient closely for recommendation management treatment as clinical course Plan to discharge home versus retirement facility tomorrow Problems: Subjective 24 Hr Interval Summary Free Text/Dictation Patient had an episode of delirium and combative personality yesterday evening This morning he is awake alert oriented able to answer questions properly Denies of any chest pain or shortness of breath Tolerating oral intake Exam/Review of Systems Vital Signs Vitals Vital Signs Date Time Temp Pulse Resp B/P Pulse Ox O2 Delivery O2 Flow Rate FiO2 09/24/16 08:41 86 09/24/16 08:10 98.1 155/72 97 09/24/16 05:55 Room Air 09/24/16 02:24 2.0 Intake and Output 09/23/16 09/23/16 09/24/16 15:00 23:00 07:00 Intake Total 480 ml 480 ml 220 ml Output Total 450 ml 750 ml Balance 30 ml 480 ml -530 ml Exam General: The patient is well-developed, Not in acute distress. HEENT: Atraumatic, normocephalic. The pupils are equal and round . Neck: Supple with full range of motion. Chest: Normal expansion of the thorax during inspiration Lungs: Clear to auscultation bilaterally Heart: Normal S1-S2, Regular rhythm and rate. Abdomen: Soft , nontender, nondistended , bowel sounds are present. Extremities: Normal to inspection, no edema no cyanosis Neurologic: Normal mental status,The patient is awake, alert and oriented . Results Result Diagram: 09/24/16 0645 09/24/16 0645 Results 24 hrs Laboratory Tests Test 09/24/16 06:45 Anion Gap 17 H Basophils # 0.0 Basophils % 0.2 Blood Urea Nitrogen 19 Calcium Level 8.9 Carbon Dioxide Level 21 Chloride Level 97 Creatinine 0.86 Eosinophils # 0.1 Eosinophils % 0.5 Glucose Level 91 Hematocrit 41.1 L Hemoglobin 14.4 Lymphocytes # 1.2 Lymphocytes % 9.3 L Mean Corpuscular Hemoglobin 34.1 H Mean Corpuscular Hemoglobin Concent 35.0 Mean Corpuscular Volume 97.4 Mean Platelet Volume 9.9 Monocytes # 1.0 H Monocytes % 8.2 Neutrophils # 10.2 H Neutrophils % 81.8 H Nucleated Red Blood Cells # 0.0 Nucleated Red Blood Cells % 0.0 Platelet Count 183 Potassium Level 4.0 Red Blood Count 4.22 L Red Cell Distribution Width 13.9 Sodium Level 131 L White Blood Count 12.5 #H Medications Medications Current Medications Aspirin (Halfprin) 81 mg DAILY PO Last administered on 09/24/16 09:13; Admin Dose 81 MG; Start 09/23/16 at 09:00 Ticagrelor (Brilinta) 90 mg BID PO Last administered on 09/24/16 09:21; Admin Dose 90 MG; Start 09/22/16 at 21:00 Acetaminophen (Tylenol Tab) 650 mg Q4H PRN PO NON-CARDIAC PAIN LEVEL 1-3; Start 09/22/16 at 15:30 Oxycodone/ Acetaminophen (Percocet (5/ 325)) 1 tab Q4H PRN PO REPORTED NON- CARDIAC PAIN 4-7; Start 09/22/16 at 15:30 Oxycodone/ Acetaminophen (Percocet (5/ 325)) 2 tab Q4H PRN PO REPORTED NON- CARDIAC PAIN 4-7; Start 09/22/16 at 15:30 Morphine Sulfate (morphine) 1 mg Q1H PRN IV PAIN NOT RELIEVED BY OTHERS; Start 09/22/16 at 15:30 Docusate Sodium (Colace) 100 mg BID PO Last administered on 09/24/16 09:13; Admin Dose 100 MG; Start 09/22/16 at 21:00 Famotidine (Pepcid) 20 mg Q12 PO Last administered on 09/24/16 09:14; Admin Dose 20 MG; Start 09/22/16 at 21:00 Hydralazine HCl (Apresoline) 10 mg Q6H PRN IV ELEVATED BLOOD PRESSURE Last administered on 09/24/16 04:23; Admin Dose 10 MG; Start 09/24/16 at 04:30 Carvedilol (Coreg) 6.25 mg BID PO Last administered on 09/24/16 09:14; Admin Dose 6.25 MG; Start 09/24/16 at 09:00 Lisinopril (Zestril) 10 mg DAILY PO Last administered on 09/24/16 09:14; Admin Dose 10 MG; Start 09/24/16 at 09:00 Atorvastatin Calcium (Lipitor) 40 mg DAILY@21 PO ; Start 09/24/16 at 21:00; Status UNV Atorvastatin Calcium (Lipitor) 40 mg HS PO ; Start 09/24/16 at 21:00; Status UNV MANISHA MURPHY MD Sep 24, 2016 12:16
[2016-09-24] MEDS: CEFTRIAXONE 1 GM/50 ML (PMX) 50 ML IVPB SCH (12:30)
[2016-09-24] MEDS: ATORVASTATIN 40 MG TAB PO SCH (20:15)
[2016-09-24] MEDS ORDERED: ATORVASTATIN 40 MG TAB PO SCH (21:00)
--- NOTE | 2016-09-24 22:52 | RADRPT ---
PROCEDURE: MR Brain without contrast. CLINICAL INDICATION: Acute myocardial infarction. TECHNIQUE: An MRI of the brain was performed on a 1.5 dameon scanner utilizing the following sequen igor: Sagittal T1 weighted, axial T2 weighted, axial FLAIR, coronal GRE, and axial diffusion weighted with ADC mapping. COMPARISON: None FINDINGS: No evidence of restricted diffusion to suggest acute or early subacute ischemic infarction. There i s no evidence of intracranial hemorrhage, mass effect, or midline shift. No extra-axial fluid collec tions are seen. No hypointense signal abnormalities are seen on the GRE images to suggest the presence of blood degr adation products. There is several scattered T2 signal hyperintensity foci throughout the deep white matter compatible with sequelae of chronic microvascular ischemic injury. The brain parenchyma is otherwise normal in signal intensity and morphology with preservation of gra y white differentiation . Marked prominence of the ventricles and subarachnoid spaces are greatest involving the frontal and t emporal lobes. Correlate clinically for frontotemporal dementia. Prominent bifrontal CSF spaces wi th subtle effacement of the gyri. Although this likely represents cortical atrophy subdural hygroma s can have a similar appearance. The posterior fossa contents, brainstem, seventh - eighth cranial nerve complexes, pituitary axis, o rbits, paranasal sinuses, and mastoid air cells are unremarkable. Normal flow voids are visible in the proximal intracranial arteries and dural sinuses, indicating pa tency. IMPRESSION: 1. No evidence of acute intracranial pathology. 2. Marked global cortical atrophy greatest involving the frontal and temporal lobes as described ab ove. RPTAT:AAJJ Physician Brian Date Time Electronically viewed and signed by Physician Brian on 09/24/2016 22:51 HANK/
[2016-09-25] VITALS (10 sets, daily range): BP systolic 115–139; BP diastolic 56–62; PULSE 71–97; RESP 18–21
[2016-09-25 07:48] LABS: POTASSIUM 4.5 mmol/L (3.5-5.1)
[2016-09-25 07:51] LABS: CREATININE 1.03 mg/dl (0.61-1.24)
[2016-09-25 07:52] LABS: CALCIUM 9.3 mg/dl (8.4-10.2); MAGNESIUM 1.8 mg/dl (1.7-2.5)
[2016-09-25 09:17] LABS: BASOPHILS % 0.3 % (0.0-2.0); EOSINOPHILS % 0.4 % (0.0-7.0); HEMATOCRIT 40.2 % (42.0-52.0); HEMOGLOBIN 13.7 g/dl (14.0-18.0); LYMPHOCYTES # 1.1 10^3/ul (0.8-2.9); LYMPHOCYTES % 8.7 % (15.0-51.0); MEAN CORPUSCULAR HEMOGLOBIN 33.1 pg (29.0-33.0); MEAN CORPUSCULAR VOLUME 97.3 fl (82.0-101.0); MEAN PLATELET VOLUME 9.9 fl (7.4-10.4); MONOCYTES % 8.2 % (0.0-11.0); NEUTROPHIL # 10.4 10^3/ul (1.6-7.5); NEUTROPHILS % 82.4 % (39.0-77.0); PLATELET COUNT 190 10^3/UL (140-440); RED BLOOD COUNT 4.14 10^6/ul (4.70-6.10); UNCORRECTED WBC 12.6 10^3/ul (4.8-10.8); WHITE BLOOD COUNT 12.6 10^3/ul (4.8-10.8)
[2016-09-25 09:20] LABS: CONDITION 1
[2016-09-25] MEDS: DOCUSATE SODIUM 100 MG CAP PO SCH ×2 (09:27→21:00)
[2016-09-25] MEDS: ASPIRIN (EC) 81 MG TAB PO SCH (09:27)
[2016-09-25] MEDS: FAMOTIDINE 20 MG TAB PO SCH ×2 (09:28→21:00)
[2016-09-25] MEDS: LISINOPRIL 10 MG TAB PO SCH (09:28)
[2016-09-25] MEDS: TICAGRELOR 90 MG TABLET PO SCH ×2 (09:34→21:09)
--- NOTE | 2016-09-25 11:52 | CONS ---
Date/Time of Note Date/Time of Note DATE: 09/25/16 TIME: 11:41 Assessment/Plan Assessment/Plan Chief Complaint/Hosp Course 89 year old M with hx of HTN, HLD admitted with STEMI s/p thrombectomy and stenting of distal RCA, metabolic acidosis with transient encephalopathy, delirium. Suspect he may have underlying cognitive issues and is becoming agitated in the hospital secondary to delirium. avoid benzodiazepines, continue re-orientation with family support if necessary may use low dose seroquel 25 mg qhs prn for agitation review MRI Brain w/o contrast, chronic changes frontal and temporal atrophy, no hemorrhage noted, safe to continue on current antiplatelet regimen dc planning initiated, thank you for involving me in his care Problems: Consultation Date/Type/Reason Admit Date/Time Sep 22, 2016 at 15:49 Date of Consultation: Sep 25, 2016 Type of Consultation: Neurology Reason for Consultation delirium/encephalopathy Referring Provider: MANISHA MURPHY MD Hx of Present Illness 89 year old male with history of HTN, HLD presented with STEMI s/p thrombectomy and stenting of distal RCA on aspirin and brilinta, anion gap metabolic acidosis now resolved with transient encephalopathy and delirium. Overnight he was agitated, removed his restraints and found walking in the hallway wandering. At baseline he denies any cognitive issues, independent in most ADL, lives with his . MRI Brain shows chronic atrophy frontal and temporal regions, no acute ischemic changes or ICH, chronic microhemorrhages seen either. denies any headaches, no chest pain no speech deficits or focal weakness Social History Smoking Status: Former smoker Exam/Review of Systems Vital Signs Vitals Vital Signs Date Time Temp Pulse Resp B/P Pulse Ox O2 Delivery O2 Flow Rate FiO2 09/25/16 11:24 97.4 68 18 118/56 94 09/24/16 08:00 Room Air 09/24/16 02:24 2.0 Intake and Output 09/24/16 09/24/16 09/25/16 15:00 23:00 07:00 Intake Total 50 ml 600 ml 60 ml Output Total 500 ml 500 ml Balance 50 ml 100 ml -440 ml Exam awake and alert oriented to self, date sep [id number], unable to state location after given several choices he picks hospital aware he is in the hospital for clogged artery in the heart insight judgement intact CN: INÉS, blinks to threat no sig. facial asymmetry palate upgoing uvula midline scn/trap intact tongue midline Motor: no drift in arms or legs Sensory intact strength Results Result Diagram: 09/25/1610 09/25/16 0710 Results 24 hrs Laboratory Tests Test 09/25/16 07:10 Anion Gap 18 H Basophils # 0.0 Basophils % 0.3 Blood Urea Nitrogen 25 H Calcium Level 9.3 Carbon Dioxide Level 20 L Chloride Level 97 Creatinine 1.03 Eosinophils # 0.0 Eosinophils % 0.4 Glucose Level 87 Hematocrit 40.2 L Hemoglobin 13.7 L Lymphocytes # 1.1 Lymphocytes % 8.7 L Magnesium Level 1.8 Mean Corpuscular Hemoglobin 33.1 H Mean Corpuscular Hemoglobin Concent 34.0 Mean Corpuscular Volume 97.3 Mean Platelet Volume 9.9 Monocytes # 1.0 H Monocytes % 8.2 Neutrophils # 10.4 H Neutrophils % 82.4 H Nucleated Red Blood Cells # 0.0 Nucleated Red Blood Cells % 0.0 Platelet Count 190 Potassium Level 4.5 Red Blood Count 4.14 L Red Cell Distribution Width 14.0 Sodium Level 130 L White Blood Count 12.6 H Medications Medications Current Medications Aspirin (Halfprin) 81 mg DAILY PO Last administered on 09/25/16 09:27; Admin Dose 81 MG; Start 09/23/16 at 09:00 Ticagrelor (Brilinta) 90 mg BID PO Last administered on 09/25/16 09:34; Admin Dose 90 MG; Start 09/22/16 at 21:00 Acetaminophen (Tylenol Tab) 650 mg Q4H PRN PO NON-CARDIAC PAIN LEVEL 1-3; Start 09/22/16 at 15:30 Oxycodone/ Acetaminophen (Percocet (5/ 325)) 1 tab Q4H PRN PO REPORTED NON- CARDIAC PAIN 4-7; Start 09/22/16 at 15:30 Oxycodone/ Acetaminophen (Percocet (5/ 325)) 2 tab Q4H PRN PO REPORTED NON- CARDIAC PAIN 4-7; Start 09/22/16 at 15:30 Morphine Sulfate (morphine) 1 mg Q1H PRN IV PAIN NOT RELIEVED BY OTHERS; Start 09/22/16 at 15:30 Docusate Sodium (Colace) 100 mg BID PO Last administered on 09/25/16 09:27; Admin Dose 100 MG; Start 09/22/16 at 21:00 Famotidine (Pepcid) 20 mg Q12 PO Last administered on 09/25/16 09:28; Admin Dose 20 MG; Start 09/22/16 at 21:00 Hydralazine HCl (Apresoline) 10 mg Q6H PRN IV ELEVATED BLOOD PRESSURE Last administered on 09/24/16 04:23; Admin Dose 10 MG; Start 09/24/16 at 04:30 Carvedilol (Coreg) 6.25 mg BID PO Last administered on 09/25/16 09:28; Admin Dose 6.25 MG; Start 09/24/16 at 09:00 Lisinopril (Zestril) 10 mg DAILY PO Last administered on 09/25/16 09:28; Admin Dose 10 MG; Start 09/24/16 at 09:00 Atorvastatin Calcium 40 mg 40 mg HS PO Last administered on 09/24/16 20:15; Admin Dose 40 MG; Start 09/24/16 at 21:00 Ceftriaxone Sodium (Rocephin) 50 ml @ 100 mls/hr Q24H IVPB Last administered on 09/24/16 12:30; Admin Dose 100 MLS/HR; Start 09/24/16 at 12:30 VIDHYA HAMMONDS MD Sep 25, 2016 11:51
--- NOTE | 2016-09-25 12:35 | PN ---
Date/Time of Note Date/Time of Note DATE: 09/25/16 TIME: 12:33 Assessment/Plan VTE Prophylaxis VTE Prophylaxis Intervention: SCD's Lines/Catheters IV [facility]ter Type (from [facility] [place] [facility] Urinary Cath still in place: No Assessment/Plan Chief Complaint/Hosp Course IMPRESSION: 1. ST elevation myocardial infarction, status post thrombectomy/stenting of the distal RCA. Continue aggressive medical management, aspirin, Brilinta, statin and beta blockers 2. History of coronary artery disease status post stent x3 and coronary artery bypass in the past. As above 3. Dyslipidemia Continue statin 4. Anion gap metabolic acidosis. Resolved 5. Essential hypertension Well-controlled on medical management 6. Leukocytosis Likely reactive post left heart catheterization, start patient on prophylactic Rocephin 7. Altered mental status Likely hospital-acquired delirium /sundowning. Neurology has been consulted , MRI of the brain did not show any acute finding, with Marked global cortical atrophy greatest involving the frontal and temporal lobes. We will continue monitor patient closely for recommendation management treatment as clinical course Plan to discharge home versus group home facility tomorrow Problems: Subjective 24 Hr Interval Summary Free Text/Dictation Patient denies of any chest pain or shortness of breath Is awake alert oriented Able to answer questions properly Exam/Review of Systems Vital Signs Vitals Vital Signs Date Time Temp Pulse Resp B/P Pulse Ox O2 Delivery O2 Flow Rate FiO2 09/25/16 12:18 75 09/25/16 11:24 97.4 18 118/56 94 09/24/16 08:00 Room Air 09/24/16 02:24 2.0 Intake and Output 09/24/16 09/24/16 09/25/16 14:59 22:59 06:59 Intake Total 270 ml 600 ml 60 ml Output Total 750 ml 500 ml 500 ml Balance -480 ml 100 ml -440 ml Exam General: The patient is well-developed, Not in acute distress. HEENT: Atraumatic, normocephalic. The pupils are equal and round . Neck: Supple with full range of motion. Chest: Normal expansion of the thorax during inspiration Lungs: Clear to auscultation bilaterally Heart: Normal S1-S2, Regular rhythm and rate. Abdomen: Soft , nontender, nondistended , bowel sounds are present. Extremities: Normal to inspection, no edema no cyanosis Neurologic: Normal mental status,The patient is awake, alert and oriented . Results Result Diagram: 2/22/17 0710 09/25/16 0710 Results 24 hrs Laboratory Tests Test 09/25/16 07:10 Anion Gap 18 H Basophils # 0.0 Basophils % 0.3 Blood Urea Nitrogen 25 H Calcium Level 9.3 Carbon Dioxide Level 20 L Chloride Level 97 Creatinine 1.03 Eosinophils # 0.0 Eosinophils % 0.4 Glucose Level 87 Hematocrit 40.2 L Hemoglobin 13.7 L Lymphocytes # 1.1 Lymphocytes % 8.7 L Magnesium Level 1.8 Mean Corpuscular Hemoglobin 33.1 H Mean Corpuscular Hemoglobin Concent 34.0 Mean Corpuscular Volume 97.3 Mean Platelet Volume 9.9 Monocytes # 1.0 H Monocytes % 8.2 Neutrophils # 10.4 H Neutrophils % 82.4 H Nucleated Red Blood Cells # 0.0 Nucleated Red Blood Cells % 0.0 Platelet Count 190 Potassium Level 4.5 Red Blood Count 4.14 L Red Cell Distribution Width 14.0 Sodium Level 130 L White Blood Count 12.6 H Medications Medications Current Medications Aspirin (Halfprin) 81 mg DAILY PO Last administered on 09/25/16 09:27; Admin Dose 81 MG; Start 09/23/16 at 09:00 Ticagrelor (Brilinta) 90 mg BID PO Last administered on 09/25/16 09:34; Admin Dose 90 MG; Start 09/22/16 at 21:00 Acetaminophen (Tylenol Tab) 650 mg Q4H PRN PO NON-CARDIAC PAIN LEVEL 1-3; Start 09/22/16 at 15:30 Oxycodone/ Acetaminophen (Percocet (5/ 325)) 1 tab Q4H PRN PO REPORTED NON- CARDIAC PAIN 4-7; Start 09/22/16 at 15:30 Oxycodone/ Acetaminophen (Percocet (5/ 325)) 2 tab Q4H PRN PO REPORTED NON- CARDIAC PAIN 4-7; Start 09/22/16 at 15:30 Morphine Sulfate (morphine) 1 mg Q1H PRN IV PAIN NOT RELIEVED BY OTHERS; Start 09/22/16 at 15:30 Docusate Sodium (Colace) 100 mg BID PO Last administered on 09/25/16 09:27; Admin Dose 100 MG; Start 09/22/16 at 21:00 Famotidine (Pepcid) 20 mg Q12 PO Last administered on 09/25/16 09:28; Admin Dose 20 MG; Start 09/22/16 at 21:00 Hydralazine HCl (Apresoline) 10 mg Q6H PRN IV ELEVATED BLOOD PRESSURE Last administered on 09/24/16 04:23; Admin Dose 10 MG; Start 09/24/16 at 04:30 Carvedilol (Coreg) 6.25 mg BID PO Last administered on 09/25/16 09:28; Admin Dose 6.25 MG; Start 09/24/16 at 09:00 Lisinopril (Zestril) 10 mg DAILY PO Last administered on 09/25/16 09:28; Admin Dose 10 MG; Start 09/24/16 at 09:00 Atorvastatin Calcium 40 mg 40 mg HS PO Last administered on 09/24/16 20:15; Admin Dose 40 MG; Start 09/24/16 at 21:00 Ceftriaxone Sodium (Rocephin) 50 ml @ 100 mls/hr Q24H IVPB Last administered on 09/24/16 12:30; Admin Dose 100 MLS/HR; Start 09/24/16 at 12:30 MANISHA MURPHY MD Sep 25, 2016 12:35
[2016-09-25] MEDS: CEFTRIAXONE 1 GM/50 ML (PMX) 50 ML IVPB SCH (13:39)
--- NOTE | 2016-09-25 14:05 | PN ---
DATE: 09/25/2016 CARDIOLOGY FOLLOWUP SUBJECTIVE: Discussed with the staff nurses. Rhythm strip reviewed, in sinus rhythm. No chest pain or pressure. No palpitation. No groin pain. The patient is actually walking around the hallway a t this moment when I saw him. He wants to go home. According to the staff he has been intermittentl y confused. MEDICATIONS: Reviewed. PHYSICAL EXAMINATION: VITAL SIGNS: Temperature 98.9, heart rate of 74, blood pressure 142/75, respiratory rate of 80, sat urating 95%. HEENT: Normocephalic, atraumatic: No acute distress. Pupils are equal and round. CARDIOVASCULAR: Regular rate and rhythm, systolic murmur. PULMONARY: With no wheezes or rhonchi. GASTROINTESTINAL: Soft, nontender. No rebound or guarding. EXTREMITIES: No significant edema. NEUROLOGIC: Awake and alert. Responds appropriately. PSYCHIATRIC: Appears to be calm and pleasant at this point. LABORATORY: Sodium 130, potassium 4.5, BUN of 25, creatinine 1.03, glucose of 87. Magnesium is 1.8 . ASSESSMENT AND PLAN: 1. Acute inferior ST elevation myocardial infarction. 2. Status post emergent percutaneous coronary intervention of the right coronary artery. 3. Multivessel coronary artery disease, history of coronary bypass graft. 4. History of PCI and saphenous vein graft of left circumflex artery in September 2016. 5. Status post syncope, currently appears to be stable. 6. Abnormal EKG, right bundle branch block. 7. History of hypertension. 8. Dyslipidemia. RECOMMENDATIONS: We will continue with the current cardiac care includin. Statins. 2. Carvedilol. 3. Lisinopril. 4. Aspirin. 5. Brilinta. 6. Lipitor has been decreased per request of family members, but denies wanting to take more than 4 0 mg daily. The patient and family have been advised that they will need to have an outpatient foll owup with his own pattern grader. ____ management as per internal medicine. Dictated By: JOHANNA GIBSON MD AV/BIN Conf#: [id number] DID#: [id number] CC: MANISHA MURPHY MD;*EndCC*
--- NOTE | 2016-09-25 15:29 | RADRPT ---
Vent Rate: 0 bpm RR Interval: 0 msec [place] Interval: 0 msec QRS Duration: 0 msec QT Interval: 0 msec QTC Interval: 0 msec P-R-T [place]: 0 - 0 - 0 degrees Electronically Signed By: Quincy Sharp [id number]
--- NOTE | 2016-09-25 15:47 | RADRPT ---
Vent Rate: 0 bpm RR Interval: 0 msec [place] Interval: 0 msec QRS Duration: 0 msec QT Interval: 0 msec QTC Interval: 0 msec P-R-T [place]: 0 - 0 - 0 degrees Electronically Signed By: Quincy Sharp [id number]
[2016-09-25] MEDS ORDERED: GUAIFENESIN/DM 5ML CUP PO PRN (17:00)
--- NOTE | 2016-09-25 17:36 | DS ---
DATE OF ADMISSION: 09/22/2016 DATE OF DISCHARGE: 09/25/2016 CONSULTANTS: 1. Surveillance Investigator. 2. Neurologist. PROCEDURES: 1. 2-D echocardiogram, which demonstrated normal left ventricle cavity size, sigmoid septum. Eject ion fraction is visually estimated at 40%. Stage I diastolic dysfunction. Multiple segmental wall motion abnormality. Aortic sclerosis without stenosis, probably tri-leaflet aortic valve, although not all leaflets are visualized. Mild to moderate aortic valve regurgitation. 2. Emergent left heart catheterization, selective right and left coronary angiography, saphenous ve in angiography. Successful thrombectomy, PTCA stenting of the distal right coronary artery from 90% stenosis with evidence of intraluminal thrombosis. No significant residual stenosis. Using 2.5 x 24 Promus drug-eluting stent. DISCHARGE DIAGNOSES: 1. ST elevation myocardial infarction, status post thrombectomy and stenting of the distal RCA. Co ntinue aspirin, Brilinta, statin, and beta sanjana. 2. History of coronary artery disease status post stent x2, coronary artery bypass in the past as a jenny. 3. Dyslipidemia. The patient has been placed on Lipitor 40 mg. 4. Anion gap metabolic acidosis, resolved. 5. Essential hypertension, well controlled on medical management. 6. Leukocytosis, likely reactive post heart catheterization. 7. Altered mental status. At this time, patient is awake, alert, oriented x3. This is likely seco ndary to hospital acquired delirium/sundowning. Neurology was consulted. MRI of the brain did not show any acute finding, although it did show marked global cortical atrophy greatest involving the f rontal and temporal lobe. Follow up neurology as outpatient. DISPOSITION: Home. FOLLOWUP: 1. Follow up with cardiology, Dr. Joseph, as outpatient. 2. Follow up with neurology as outpatient. DIET: Cardiac diet. ACTIVITY: As tolerated. MEDICATIONS: 1. Aspirin 81 mg. 2. Lipitor 40 mg. 3. Coreg 6.25 mg. 4. Pepcid 20 mg. 5. Lisinopril 10 mg 6. Brilinta 90 mg. 7. Percocet 5/325. ALLERGIES: NO KNOWN DRUG ALLERGIES. HOSPITAL COURSE: This is a very pleasant 89-year-old gentleman with past medical history of coronar y artery disease status post CABG, hypertension, dyslipidemia, who was recently at [facility] secondary to syncope and was discharged home, and then he had another episode of loss of consciou sness and was found to have ST elevation myocardial infarction. Patient was brought into the emerge ncy room at [facility]. EKG showed STEMI. 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 He is status post successful thrombectomy, PTCA stenting of the distal right coronary artery, and was admitted to the ICU. A 2D echocardiogram demonstrated ejection fraction 4 0%. The patient was continued on aggressive medical management, placed on aspirin, Brilinta, statin. Th e second night of hospitalization, patient became altered and mildly agitated. This is likely second kathleen to sundowning and hospital-acquired delirium. CT of the brain was obtained, which did not show any acute finding. This was discussed with his granddaughter over the phone. Neurology was consult ed. MRI of the brain was obtained, and MRI of the brain also did not show any evidence of acute int racranial pathology, although it did show marked global cortical atrophy greatest involving the fron totemporal lobe. This may correlate clinically with frontotemporal dementia. As per neurology note , patient may suspect underlying cognitive issue and has become agitated in the hospital secondary t o delirium and was recommended to avoid benzodiazepine and re-orientation with the family support if necessary, and patient may be placed on Seroquel 25 mg p.r.n. for agitation. At this time, patient is awake, alert, oriented. He is able to answer my questions properly. He has been able to tolerat e oral intake without any difficulty. We will follow up neurology recommendation for discharge. Al so, I had several phone conversations with patient's granddaughter, and I explained everything with her, but at the bedside today on 09/25/2016 prior to discharge. Dictated By: MANISHA MURPHY MD PN/NTS Conf#: [id number] DID#: [id number]
[2016-09-25] MEDS: ATORVASTATIN 40 MG TAB PO SCH (21:00)
[2016-09-25] MEDS: QUETIAPINE 25 MG TAB PO PRN (21:01)
[2016-09-25] MEDS: CEPHALEXIN 500 MG CAP PO SCH (22:00)
[2016-09-26] VITALS (9 sets, daily range): BP systolic 85–130; BP diastolic 41–60; PULSE 57–75; RESP 20
[2016-09-26] MEDS: CEPHALEXIN 500 MG CAP PO SCH ×2 (06:02→15:08)
[2016-09-26] MEDS: DOCUSATE SODIUM 100 MG CAP PO SCH (10:05)
[2016-09-26] MEDS: QUETIAPINE 25 MG TAB PO PRN (10:05)
[2016-09-26] MEDS: ASPIRIN (EC) 81 MG TAB PO SCH (10:05)
[2016-09-26] MEDS: LISINOPRIL 10 MG TAB PO SCH (10:06)
[2016-09-26] MEDS: FAMOTIDINE 20 MG TAB PO SCH (10:06)
--- NOTE | 2016-09-26 10:12 | PN ---
DATE: 09/26/2016 CARDIOLOGY FOLLOWUP SUBJECTIVE: The patient with no chest pain or pressure. No palpitation. Rhythm strip was reviewed , remains in sinus rhythm. No pauses reported. MEDICATIONS: Reviewed as per medical reconciliation, personally reviewed. PHYSICAL EXAMINATION: VITAL SIGNS: Temperature 97.8, heart rate of 66, blood pressure of 112/43, respiratory rate of 20, saturating 97%. HEENT: Normocephalic, atraumatic. No acute distress. Pupils equal and round. CARDIOVASCULAR: Regular rate and rhythm, systolic murmur. PULMONARY: With no wheezes or rhonchi. GASTROINTESTINAL: Soft, nontender. EXTREMITIES: Trivial edema. NEUROLOGIC: Awake, responds appropriately. PSYCHIATRIC: Appears to be calm and pleasant. ASSESSMENT AND PLAN: 1. Acute inferior ST elevation myocardial infarction. 2. Status post percutaneous coronary intervention of right coronary artery. 3. Status post syncope. 4. Hypertension. 5. Cardiomyopathy 6. History of coronary bypass graft. 7. History of multiple percutaneous coronary interventions. RECOMMENDATIONS: We will continue with the current cardiac care. Discharge planning to be consider ed. The patient was advised to follow up with his regular drama critic, Dr. Joseph within the nex t few days. Dictated By: JOHANNA GIBSON MD AV/BIN Conf#: [id number] DID#: [id number] CC: MANISHA MURPHY MD;*End*
[2016-09-26] MEDS: TICAGRELOR 90 MG TABLET PO SCH (10:20)
[2016-09-26 12:03] LABS: ADD SCAN DIFF NO
[2016-09-26 12:08] LABS: BASOPHILS % 0.5 % (0.0-2.0); EOSINOPHILS # 0.2 10^3/ul (0.0-0.5); HEMATOCRIT 33.1 % (42.0-52.0); HEMOGLOBIN 11.8 g/dl (14.0-18.0); LYMPHOCYTES # 0.8 10^3/ul (0.8-2.9); MEAN CORPUSCULAR HEMOGLOBIN 33.6 pg (29.0-33.0); MEAN CORPUSCULAR HGB CONC 35.6 g/dl (32.0-37.0); MEAN CORPUSCULAR VOLUME 94.3 fl (82.0-101.0); MEAN PLATELET VOLUME 11.4 fl (7.4-10.4); MONOCYTE # 0.8 10^3/ul (0.3-0.9); MONOCYTES % 9.5 % (0.0-11.0); NEUTROPHIL # 6.9 10^3/ul (1.6-7.5); NEUTROPHILS % 78.5 % (39.0-77.0); PLATELET COUNT 182 10^3/UL (140-415); RED BLOOD COUNT 3.51 10^6/ul (4.70-6.10); RED CELL DISTRIBUTION WIDTH 13.2 % (11.5-14.5); WHITE BLOOD COUNT 8.7 10^3/ul (4.8-10.8)
[2016-09-26 12:16] LABS: CREATININE 0.98 mg/dl (0.61-1.24)
[2016-09-26 12:17] LABS: CALCIUM 8.5 mg/dl (8.4-10.2)
[2016-09-26] MEDS ORDERED: NITR0.4T6 SL (12:42)
[2016-09-26] MEDS ORDERED: CARV3.12 PO (12:43)
[2016-09-26] MEDS ORDERED: LISI-313 PO (12:43)
--- NOTE | 2016-09-26 13:28 | DS ---
DATE OF ADMISSION: 09/22/2016 DATE OF DISCHARGE: 09/26/2016 ADDENDUM CONSULTANTS: 1. Cardiology. 2. Neurology. PROCEDURES: A 2D echocardiogram. Emergent left heart catheterization with selective right and left coronary angiography. DISCHARGE DIAGNOSES: 1. ST elevation myocardial infarction. 2. History of coronary artery disease status post coronary bypass. 3. Dyslipidemia. 4. Anion gap acidosis, resolved. 5. Essential hypertension. 6. Leukocytosis. 7. Sundowning/hospital acquired delirium. MEDICATIONS: 1. Aspirin. 2. Lipitor. 3. Coreg 3.125 mg. 4. Pepcid 20 mg. 5. Lisinopril 5 mg. 6. Brilinta 90 mg. 7. Nitroglycerin 0.4 mg. ALLERGIES: NO KNOWN DRUG ALLERGIES. FOLLOWUP: 1. Follow with cardiology, Dr. Joseph as outpatient. 2. Follow up neurology as outpatient. HOSPITAL COURSE: This is an addendum for a discharge summary which was done by me on 09/25/2016. Cynthia olvera is a pleasant 89-year-old gentleman with past medical history of coronary artery disease status po st CABG, hypertension, dyslipidemia, who was admitted to [facility] with diagnosis of ST MD. Upon presenting to the ER the patient was taken to chemistry laboratory technician emergently. He is status po st successful thrombectomy, PTCA stenting of the distal right coronary artery and was admitted to [facility], was placed on aggressive medical management, aspirin, Brilinta, statin, beta sanjana. On the sec ond hospitalization, the patient became altered and mildly agitated. This was likely secondary to s undowning, hospital acquired delirium. CT of the brain was obtained which did not show any acute fi nding. MRI of the brain also did not show any evidence of acute intracranial pathology, although it did show marked global cortical atrophy greatest involving the frontotemporal lobe which may correl ate clinically with frontotemporal dementia. As per neurology note patient issue and may becom e agitated in the hospital secondary to delirium and was recommended to avoid benzodiazepines, reori entation with the family, support if necessary. The patient was also placed on Seroquel 25 mg as nee ded for agitation. The patient was found to have leukocytosis with WBC of 12.5, which he tolerated well and during the evening he did not have any evidence of agitation or hallucinations. Patient yossi s also found to have leukocytosis with WBC of 12.5, which urinalysis was found to be negative. Nickie ent was afebrile, this likely was reactive leukocytosis secondary to left heart catheterization and a PCI, although patient's prophylaxis was treated with Rocephin and was transitioned to Keflex. This morning, patient is awake, alert, oriented. He has been able to tolerate oral intake. He has been ambulating without any difficulty. He has been cleared neurologist standpoint with regards to discharge. The plan for discharge and followup was discussed with the patient's granddaughter, Nash euceda over the phone. All the medications and the followup was also discussed with her over the phone . The patient needs to follow up with his primary care physician as outpatient and be referred to a neurologist, which is recommended by patient's primary care physician. Also, patient needs to follo w up with his own rug cleaner as outpatient. DIET: Cardiac diet. ACTIVITY: As tolerated. Also have discussed the patient should be monitored for the next 24 to 48 hours by a family member, which this should reorient him and give him full support for the next week or so. CONDITION AT TIME OF DISCHARGE: Stable. Dictated By: MANISHA FLORES/BIN Conf#: [id number] DID#: [id number]
== END 2016-09-26 15:52 | disposition home health service (06) | DRG 246 ==
LOC: E/R 13:14 → EDBD 15:49 → ICU 15:49 → TEL 09-23 13:00
PROVIDERS: ADMIT Internal Medicine; ATTEND Internal Medicine
PROC: 4A023N7 Measurement of Cardiac Sampling and Pressure, Left Heart, Percutaneous Approach (ICD-10-PCS; 2016-09-22)
PROC: B2121ZZ Fluoroscopy of Single Coronary Artery Bypass Graft using Low Osmolar Contrast (ICD-10-PCS; 2016-09-22)
PROC: 3E07317 Introduction of Other Thrombolytic into Coronary Artery, Percutaneous Approach (ICD-10-PCS; 2016-09-22)
PROC: 027034Z Dilation of Coronary Artery, One Artery with Drug-eluting Intraluminal Device, Percutaneous Approach (ICD-10-PCS; principal; 2016-09-22 14:00)
PROC: 02C03ZZ Extirpation of Matter from Coronary Artery, One Artery, Percutaneous Approach (ICD-10-PCS; 2016-09-22 14:00)
DX: I21.19 ST elevation (STEMI) myocardial infarction involving other coronary artery of inferior wall (principal); G93.49 Other encephalopathy; E87.2 Acidosis; Z95.1 Presence of aortocoronary bypass graft; I10 Essential (primary) hypertension; I25.10 Atherosclerotic heart disease of native coronary artery without angina pectoris; Z95.5 Presence of coronary angioplasty implant and graft; Z87.891 Personal history of nicotine dependence; Z79.02 Long term (current) use of antithrombotics/antiplatelets; E78.5 Hyperlipidemia, unspecified; I45.10 Unspecified right bundle-branch block; D72.829 Elevated white blood cell count, unspecified; R41.0 Disorientation, unspecified
CPT/HCPCS: 70450; 70551; 71010; 80048; 80053; 80061; 82550; 82553; 83735; 83880; 84439; 84443; 84484; 85025; 85610; 85730; 87086; 93005; 93306; 93459; 96374; C1725; C1757; C1769; C1874; C1887; C9606; J0360; J0583; J0696; J1200; J1265; J1630; J1644; J2060; J2270; J7030; J7040; Q9967